=== PATIENT | female | born 1950 | race Caucasian/White ===

== ENCOUNTER 2019-11-01 08:51 | Inpatient (IN) | payer MEDICARE, OTHER ==
[~2019-11-01] VITALS: Ht 170.2 cm; Wt 72.1 kg
[~2019-11-01 08:51] MED LIST: LISINOPRIL10 MG PO; PREDNISONE 20 M20 MG PO; VALACYCLOVIR1000 MG PO
[2019-11-01 09:01] VITALS: BP 128/61
[2019-11-01 09:08] LABS: URINE BILIRUBIN NEGATIVE (Negative); URINE BLOOD NEGATIVE (Negative); URINE CLARITY CLEAR; URINE COLOR YELLOW; URINE GLUCOSE-RANDOM NEGATIVE (Negative); URINE KETONES TRACE (Negative); URINE LEUKOCYTES-REFLEX NEGATIVE (Negative); URINE NITRITE-REFLEX NEGATIVE (Negative); URINE PROTEIN TRACE (Negative); URINE SPECIFIC GRAVITY >= 1.030 (1.005-1.030); URINE UROBILINOGEN 0.2 E.U./dl (0.2-1.0)
[2019-11-01 09:16] LABS: INFLUENZA A ANTIGEN Negative (Negative)
[2019-11-01 09:31] LABS: ABSOLUTE LYMPHOCYTES 0.8 thou/uL (0.8-5.3); ABSOLUTE MONOCYTES 0.5 thou/uL (0.0-1.2); ABSOLUTE NEUTROPHILS 2.3 thou/uL (1.6-8.1); BASOPHILS 0.8 %; HEMOGLOBIN 14.2 gm/dL (12.0-15.0); LYMPHOCYTES 23.1 %; MCH 29.6 pg (26.0-34.0); MCHC 33.7 g/dL (28.0-37.0); MCV 87.8 fL (80.0-100.0); MONOCYTES 13.4 %; MPV 8.6 fl. (7.2-11.1); NUCLEATED RBCS 0 /100WBC; PLATELET COUNT* 158 thou/uL (150-400); POLYS 62.7 %; RBC 4.78 mil/uL (4.20-5.00); RDW-CV 12.8 % (10.5-14.5); WBC 3.6 thou/uL (4.0-11.0)
[2019-11-01 09:38] LABS: CALCIUM 8.5 mg/dL (8.5-10.1)
[2019-11-01 09:39] LABS: APTT 27.5 Seconds (25.0-31.3); INR 1.1; PROTIME 11.1 Seconds (9.20-11.50)
[2019-11-01 09:56] LABS: ALBUMIN 3.6 g/dL (3.4-5.0); TOTAL BILIRUBIN 0.4 mg/dL (<0.1-1.0); TOTAL PROTEIN 7.4 g/dL (6.4-8.2)
[2019-11-01 13:12] VITALS: BP 128/61
[2019-11-02] VITALS: BP 136/71
[2019-11-02 08:30] VITALS: BP 144/71
[2019-11-02 12:24] VITALS: BP 122/67
[2019-11-02 17:22] VITALS: BP 130/74
[2019-11-02 20:10] VITALS: BP 141/65
[2019-11-03] VITALS: BP 122/61
[2019-11-03 08:00] VITALS: BP 133/71
--- NOTE | 2019-11-03 08:35 | EKG ---
[place] [address] ELECTROCARDIOGRAM REPORT Name: BARTOLOME SPARROW Room: [address] ADM IN [facility]#: [id number] Admission: 11/01/19 Attend Phys: Rolly Mays Discharge: Date of : 46 Report #: [id number] THIS REPORT FOR: //name// [facility] ED Test Date: 2019-11-01 Test Time: 09:18:41 Pat Name: BARTOLOME SPARROW Department: Room: [facility] Gender: F Cd Reactor Operator: : [id number] Requested By: Abhijit Henry Order Number: [id number] MD: Leonides Varela Measurements Intervals [place] Rate: 79 P: 60 MT: 159 QRS: -27 QRSD: 90 T: 65 QT: 386 QTc: 443 Interpretive Statements Sinus rhythm Left atrial enlargement Borderline left axis deviation RSR' in V1 or V2, right VCD or RVH No previous ECG available for comparison Electronically Signed On 11-03-2019 8:34:57 [employer]MINIST[employer]ATOR by Leonides Varela [email or web address] <ELECTRONICALLY SIGNED> By: Leonides Varela MD, FACC 11/03/19 0834 7 7 Leonides Varela MD, FAC /EPI
[2019-11-03] MEDS ORDERED: TESSALON PERLE100 M1 PO (14:19)
[2019-11-03] MEDS ORDERED: TAMIFLU75 MG PO (14:19)
[2019-11-03 14:27] VITALS: BP 133/71
[2019-11-03 14:48] VITALS: BP 133/71
== END 2019-11-03 14:51 | disposition home or self-care (01) | DRG 194 ==
LOC: M.ERS 08:51 → M.TBA-ER 10:44 → M.2W 10:44 → M.3W 11-03 11:27
PROVIDERS: Family Medicine; ADMIT Internal Medicine
DX: J10.1 Influenza due to other identified influenza virus with other respiratory manifestations (principal); R65.10 Systemic inflammatory response syndrome (SIRS) of non-infectious origin without acute organ dysfunction; I10 Essential (primary) hypertension; M50.322 Other cervical disc degeneration at C5-C6 level; E86.0 Dehydration; Z88.8 Allergy status to other drugs, medicaments and biological substances; Z79.899 Other long term (current) drug therapy; Z90.13 Acquired absence of bilateral breasts and nipples; Z28.21 Immunization not carried out because of patient refusal